=== PATIENT | female | born 1970 | race Caucasian/White ===

== ENCOUNTER → 2020-12-17 | Outpatient (CLI) | payer OTHER ==
[2020-12-17 09:57] LABS: BASO # 0.1 x10^3/uL (0.0-0.2); BASO % 1 % (0-3); EOS # 0.1 x10^3/uL (0.0-0.7); EOS % 2 % (0-3); HEMATOCRIT 38.3 % (36.0-47.0); HEMOGLOBIN 12.7 g/dL (12.0-15.5); LYMPH # 1.4 x10^3/uL (1.0-4.8); LYMPH % 23 % (24-48); MEAN CORPUSCULAR HEMOGLOBIN 30 pg (25-35); MEAN CORPUSCULAR HGB CONC 33 g/dL (31-37); MEAN CORPUSCULAR VOLUME 89 fL (79-100); MONO # 0.5 x10^3/uL (0.0-1.1); MONO % 8 % (0-9); NEUT # 4.1 x10^3/uL (1.8-7.7); NEUT % 67 % (31-73); PLATELET COUNT 326 x10^3/uL (140-400); RED BLOOD COUNT 4.29 x10^6/uL (3.50-5.40); RED CELL DISTRIBUTION WIDTH 14.6 % (11.5-14.5); WHITE BLOOD COUNT 6.1 x10^3/uL (4.0-11.0)
[2020-12-17 10:25] LABS: ALBUMIN 3.4 g/dL (3.4-5.0); ALBUMIN/GLOBULIN RATIO 0.9 (1.0-1.7); CALCIUM 9.5 mg/dL (8.5-10.1); GFR 58.7; POTASSIUM 4.3 mmol/L (3.5-5.1); TOTAL BILIRUBIN 0.2 mg/dL (0.2-1.0); TOTAL PROTEIN 7.2 g/dL (6.4-8.2)
[2020-12-17 10:26] LABS: CHOLESTEROL/HDL RATIO 2.6
[2020-12-17 10:29] LABS: FREE T4 1.12 ng/dL (0.76-1.46); THYROID STIM HORMONE (TSH) 5.89 uIU/mL (0.358-3.74)
[2020-12-18 01:09] LABS: HEMOGLOBIN A1C 5.6 % (4.8-5.6)
== END ==
LOC: LAB 09:30
PROVIDERS: ATTEND Family Medicine
DX: E78.5 Hyperlipidemia, unspecified (principal); I10 Essential (primary) hypertension; N95.1 Menopausal and female climacteric states; E55.9 Vitamin D deficiency, unspecified
CPT/HCPCS: 80053; 80061; 82306; 82672; 83036; 84439; 84443; 85025

== ENCOUNTER → 2020-12-22 | Outpatient (CLI) | payer OTHER ==
[~2020-12-22] MED LIST: CONTRAST GIVEN. MC PRN; IOHEXOL 240 MG/ML 50ML VIAL. PO ONE; IOHEXOL 300 MG/ML 100ML VIAL. IV ONE
--- NOTE | 2020-12-22 10:57 | RAD ---
EXAMINATION: CT abdomen and pelvis with IV contrast. INDICATION:50 years, Female, worsening and increasing size of hard and firm area in the right lower q uadrant, history of hernia repair. TECHNIQUE: Axial CT images of the abdomen and pelvis were obtained. Coronal and sagittal reformatted performed. COMPARISON: None. Exposure: One or more of the following individualized dose reduction techniques were utilized for thi s examination: 1. Automated exposure control 2. Adjustment of the mA and/or kV according to patient size 3. Use of iterative reconstruction technique. FINDINGS: LOWER CHEST: Unremarkable ABDOMEN/PELVIS: Normal size and morphology of the liver with homogeneous enhancement. No suspicious focal hepatic les ion. Cholecystectomy. No biliary ductal dilation. Unremarkable spleen, pancreas and adrenals. No hydr onephrosis or nephrolithiasis kidney. No bowel obstruction or wall thickening. Sigmoid diverticulosis. Normal appendix. No lymphadenopathy in the abdomen or pelvis by size criteria. Normal caliber abdominal aorta. Mesenteric arteries and po rtal vein are patent. No pneumoperitoneum or ascites. Unremarkable urinary bladder. Ill-defined heter ogeneous 7.1 cm mass in the anterior uterine body displacing the anterior and posterior, suggesting o f intramural fibroid. MUSCULOSKELETAL: Mild multilevel degenerative changes in the lower lumbar spine. Grade 1 anterolisthesis of L4 over L5 . No acute osseous process. Postsurgical changes of right infraumbilical ventral herniorrhaphy with m esh. There is a fat-containing right infraumbilical ventral hernia, hernia neck measures approximatel y 1.0 cm. Hernia sac measures 4.3 x 4.5 cm. Additional, small fat-containing umbilical hernia. IMPRESSION: 1. Postsurgical changes of right infraumbilical ventral hernia repair with recurrent small size fat-c ontaining hernia measures 4.5 cm with neck measures 1.0 cm. 2. Ill-defined heterogeneous 7.1 cm mass in the anterior uterine body, suggesting of an intramural fi broid. Recommend further evaluation with pelvic ultrasound. Electronically signed by: Wes Álvarez MD (12/22/2020 10:54 AM) [id number]
--- NOTE | 2020-12-23 15:38 | RAD ---
DATE: 12/22/2020 EXAM: MAMMO CAPO SCREENING BILATERAL HISTORY: Screening. Baseline exam. Family history of 2 paternal aunts with breast cancer in their 60s. COMPARISON: None. Baseline exam. This study was interpreted with the benefit of Computerized Aided Detection (CAD). Breast Density: SCATTERED The breast parenchyma shows scattered fibroglandular densities. Breast parenchyma level B. FINDINGS: No mass, suspicious calcification, or architectural distortion in either breast. IMPRESSION: No evidence of malignancy. BI-RADS CATEGORY: 1 NEGATIVE RECOMMENDED FOLLOW-UP: 12M 12 MONTH FOLLOW-UP PQRS compliance statement: Patient information was entered into a reminder system with a target due date for the next mammogram. Mammography is a sensitive method for finding small breast cancers, but it does not detect them all and is not a substitute for careful clinical examination. A negative mammogram does not negate a clinically suspicious finding and should not result in delay in biopsying a clinically suspicious abnormality. "Our facility is accredited by the [employer] Mammography Program."
== END ==
LOC: CT 08:44
PROVIDERS: ATTEND Family Medicine
DX: Z12.31 Encounter for screening mammogram for malignant neoplasm of breast (principal); K57.30 Diverticulosis of large intestine without perforation or abscess without bleeding; K43.9 Ventral hernia without obstruction or gangrene; K46.9 Unspecified abdominal hernia without obstruction or gangrene; M47.816 Spondylosis without myelopathy or radiculopathy, lumbar region; M43.16 Spondylolisthesis, lumbar region; Z90.49 Acquired absence of other specified parts of digestive tract
CPT/HCPCS: 74177; 77063; 77067; Q9966; Q9967

== ENCOUNTER → 2021-01-07 | Outpatient (CLI) | payer OTHER ==
--- NOTE | 2021-01-07 17:38 | RAD ---
EXAM: ULTRASOUND PELVIS INDICATION: Reason: 7.1 CM UTERINE, MASS ON CT / Spl. Instructions: / History: . Last menstrual per iod was December 25, 2020. COMPARISON: CT study performed on December 22, 2020. TECHNIQUE: Transabdominal sonography was performed. FINDINGS: The uterus is anteverted in position. The longitudinal and AP and transverse dimensions of the uterus are 16.8 cm and 9.4 cm and 9.3 cm respectively. There is a large anterior upper uterine body mass me asuring 7.5 cm x 6.1 cm x 6.9 cm in size. Color Doppler flow is seen within it. The endometrium measu res up to 12 mm in thickness and is displaced posteriorly by the mass. This is consistent with a larg e myometrial and submucosal uterine fibroid. No free fluid is seen within the cul-de-sac. The right ovary measures 2.4 cm x 1.8 cm x 2.2 cm in siz e and contains a 1.5 cm cyst. Color Doppler flow is seen within the right ovary. The left ovary measu res 2.3 cm and 1.4 cm and 2.4 cm in size and contains a 1.2 cm cyst. Color Doppler flow is seen withi n the left ovary. No adnexal mass is seen. IMPRESSION: Large anterior upper uterine body myometrial and submucosal fibroid measuring up to 7.5 cm. Bilateral ovarian follicular cysts. Electronically signed by: Jad Olivo MD (01/07/2021 5:36 PM) [id number]
== END ==
LOC: US 14:20
PROVIDERS: ATTEND Nurse Practitioner Family
DX: D25.0 Submucous leiomyoma of uterus (principal); N83.02 Follicular cyst of left ovary; N83.01 Follicular cyst of right ovary
CPT/HCPCS: 76856

== ENCOUNTER → 2021-02-05 | Outpatient (CLI) | payer OTHER ==
[~2021-02-05] MED LIST changes: +BUPR150T8 PO; -CONTRAST GIVEN. MC PRN; +DEXT20TA2 PO; +FLUO20CA16 PO; -IOHEXOL 240 MG/ML 50ML VIAL. PO ONE; -IOHEXOL 300 MG/ML 100ML VIAL. IV ONE; +LISI1TAB39 PO
== END ==
LOC: SPEC 14:46
PROVIDERS: ATTEND Obstetrics & Gynecology
DX: Z12.4 Encounter for screening for malignant neoplasm of cervix (principal)
CPT/HCPCS: 88175; 88305

== ENCOUNTER → 2021-03-18 | Outpatient (CLI) | payer OTHER ==
[2021-03-18 14:51] LABS: BILIRUBIN,URINE NEGATIVE (NEG); CLARITY,URINE CLEAR; COLOR,URINE YELLOW; NITRITE,URINE NEGATIVE (NEG); PH,URINE 6.5 (<5.0-8.0); PROTEIN,URINE NEGATIVE (NEG-TRACE); UROBILINOGEN,URINE 0.2 mg/dL (0.2 mg/dL)
[2021-03-18 14:55] LABS: BASO # 0.1 x10^3/uL (0.0-0.2); BASO % 1 % (0-3); EOS # 0.2 x10^3/uL (0.0-0.7); EOS % 3 % (0-3); HEMATOCRIT 40.2 % (36.0-47.0); HEMOGLOBIN 13.3 g/dL (12.0-15.5); LYMPH % 28 % (24-48); MEAN CORPUSCULAR HEMOGLOBIN 29 pg (25-35); MEAN CORPUSCULAR HGB CONC 33 g/dL (31-37); MEAN CORPUSCULAR VOLUME 88 fL (79-100); MONO # 0.5 x10^3/uL (0.0-1.1); MONO % 7 % (0-9); NEUT # 4.3 x10^3/uL (1.8-7.7); NEUT % 61 % (31-73); PLATELET COUNT 339 x10^3/uL (140-400); RED BLOOD COUNT 4.59 x10^6/uL (3.50-5.40); RED CELL DISTRIBUTION WIDTH 14.8 % (11.5-14.5)
[2021-03-18 15:04] LABS: BACTERIA,URINE FEW /HPF (0-FEW); WBC,URINE OCC /HPF (0-4)
[2021-03-18 15:05] LABS: RBC,URINE 0 /HPF (0-2)
[2021-03-18 15:09] LABS: ALBUMIN 3.3 g/dL (3.4-5.0); ALBUMIN/GLOBULIN RATIO 0.8 (1.0-1.7); CALCIUM 8.6 mg/dL (8.5-10.1); CREATININE 0.9 mg/dL (0.6-1.0); POTASSIUM 4.3 mmol/L (3.5-5.1); TOTAL BILIRUBIN 0.2 mg/dL (0.2-1.0); TOTAL PROTEIN 7.2 g/dL (6.4-8.2)
--- NOTE | 2021-03-18 15:16 | EKG ---
[facility] [address] [place] [address] Test Date: 2021-03-18 Test Time: 15:05:38 Pat Name: ELIJAH MARTÍNEZ Department: Room: Gender: F [employer]: JJ : 1970 Requested By: ANANTH LEMOS Order Number: [id number] Reading MD: Broderick Cole MD Measurements Intervals [place] Rate: 87 P: 35 IL: 136 QRS: -12 QRSD: 80 T: 50 QT: 372 QTc: 454 Interpretive Statements SINUS RHYTHM Electronically Signed On 03-21-2021 20:17:00 AUDIT CONTROL CLERK by Broderick Cole MD
--- NOTE | 2021-03-18 15:57 | RAD ---
AP and Lateral Views of the Chest 03/18/2021 3:21 PM Indication: Reason: PRE-OP HYSTERECTOMY ON 03/31 Comparison: None Findings: There is no focal consolidation or infiltrate identified. The cardiomediastinal silhouette is within normal limits. There is no evidence of pneumothorax or pleural effusion. No acute osseous a bnormalities are identified. Impression: No evidence of acute cardiopulmonary process. Electronically signed by: Hadley Faria MD (03/18/2021 3:55 PM) [id number]
== END ==
LOC: SURGPAT 14:28
PROVIDERS: ATTEND Obstetrics & Gynecology
DX: Z01.818 Encounter for other preprocedural examination (principal); I10 Essential (primary) hypertension; Z88.5 Allergy status to narcotic agent
CPT/HCPCS: 36415; 71046; 80053; 81001; 85025; 93005

== ENCOUNTER 2021-03-31 06:03 | Inpatient (IN) | payer OTHER ==
[2021-03-18 14:51] VITALS: BP 158/74
[~2021-03-31] VITALS: Ht 160 cm; Wt 100.2 kg
[2021-03-31] VITALS (10 sets, daily range): BP systolic 96–138; BP diastolic 52–75
[~2021-03-31 06:03] MED LIST changes: +HYDROmorphone 2 MG/ML VIAL IVP PRN; +IV RINGERS,LACTATED 1000ML 1,000 ML IV SCH; +PROCHLORPERAZINE 10 MG/2 ML VIAL. IVP PRN; +fentaNYL PF VIAL 100 MCG/2 ML VIAL IVP PRN
[2021-03-31] MEDS ORDERED: SCOPOLAMINE 1.5MG PATCH. TD ONE ×2 (06:08→07:00)
[2021-03-31] MEDS ORDERED: ceFAZolin 2GM PREMIX 2 GM/50 ML BAG IV ONE (06:10)
[2021-03-31] MEDS ORDERED: ROCURONIUM 50 MG/5 ML VIAL. ONE ×3 (06:48→08:38)
[2021-03-31] MEDS ORDERED: PROPOFOL 10 MG/ML (20ML) VIAL. IV ONE (06:48)
[2021-03-31] MEDS ORDERED: ONDANSETRON PF 4 MG/2 ML VIAL. ONE (06:49)
[2021-03-31] MEDS ORDERED: DEXAMETHASONE SOD PHOS 4 MG/ML VIAL ONE (06:49)
[2021-03-31] MEDS ORDERED: GLYCOPYRROLATE 1 MG/5 ML VIAL. ONE (06:53)
[2021-03-31] MEDS ORDERED: NEOSTIGMINE 10 MG/10 ML VIAL. ONE ×2 (06:53→08:51)
[2021-03-31] MEDS ORDERED: fentaNYL PF VIAL 100 MCG/2 ML VIAL ONE ×2 (06:54→11:16)
[2021-03-31] MEDS ORDERED: BUPIVACAINE-EPI 0.5% 30 ML VIAL KIT. ONE (07:11)
[2021-03-31] MEDS ORDERED: ePHEDrine PF IN SALINE 50 MG/10 ML SYRINGE. IV ONE (07:59)
[2021-03-31] MEDS ORDERED: HYDROmorphone 2 MG/ML VIAL ONE (08:19)
[2021-03-31] MEDS ORDERED: SUGAMMADEX SODIUM 200 MG/2 ML VIAL. IVP ONE (08:45)
[2021-03-31] MEDS ORDERED: VECURONIUM BOLUS 10 MG VIAL. IV ONE (09:44)
[2021-03-31] MEDS ORDERED: PHENYLEPHRINE in 0.9% NACL PF 1 MG/10 ML SYRINGE. IV ONE (10:18)
[2021-03-31] MEDS ORDERED: KETOROLAC 30 MG/ML VIAL. ONE (10:35)
[2021-03-31] MEDS ORDERED: SEVOFLURANE > 120 MINUTES. IH ONE (10:38)
[2021-03-31] MEDS ORDERED: CALCIUM CARBONATE 500 MG TAB.CHEW PO PRN (11:00)
[2021-03-31] MEDS ORDERED: ONDANSETRON PF 4 MG/2 ML VIAL. IV PRN (11:00)
[2021-03-31] MEDS ORDERED: ZOLPIDEM 5 MG TABLET. PO PRN (11:00)
[2021-03-31] MEDS ORDERED: MORPHINE SULFATE 2 MG/ML INJ. IV PRN (11:00)
[2021-03-31] MEDS ORDERED: MAGNESIUM HYDROXIDE 2,400 MG/30 ML ORAL.SUSP. PO PRN (11:00)
[2021-03-31] MEDS ORDERED: HYDROcodone/APAP 5/325MG 1 TAB TABLET PO PRN (11:00)
[2021-03-31] MEDS ORDERED: 0.9 % SODIUM CHLORIDE 10 ML DISP.SYRIN. IV PRN (11:00)
[2021-03-31] MEDS ORDERED: SIMETHICONE 80 MG TAB.CHEW PO PRN (11:00)
[2021-03-31] MEDS ORDERED: LACTULOSE 20 GM/30 ML SOLUTION. PO PRN (11:00)
[2021-03-31] MEDS ORDERED: MAG HYDROX/ALUMINUM HYD/SIMETH 30 ML ORAL.SUSP PO PRN (11:00)
[2021-03-31] MEDS ORDERED: diphenhydrAMINE HCL 25 MG CAPSULE PO PRN (11:00)
[2021-03-31] MEDS ORDERED: diphenhydrAMINE 50 MG/ML VIAL IV PRN (11:00)
[2021-03-31] MEDS ORDERED: NALOXONE 0.4 MG/ML VIAL. IV PRN (11:00)
--- NOTE | 2021-03-31 11:12 | PDOC4 ---
BRIEF OPERATIVE NOTE Date: Mar 31, 2021 Pre-Op Diagnosis menorrhagia, enlarged uterus Post-Op Diagnosis same plus extensive adhesive disease Procedure Performed GARRY/BSO/extensive adhesionlysis Surgeon Dr. Fiorella Lemos Guard Entrance Registrar Jose Dubose Anesthesiologist Dr. Parsons Anesthesia Type: General Blood Loss 450cc IV Fluid 1500cc crystalloid; 500cc albumin Urine Output 120cc clear Specimens Obtained cervix, uterus, bilateral tubes and ovaries Findings enlarged uterus, extensive adhesions, normal bilateral tubes and ovaries Complications none Operative Note [id number] FIORELLA LEMOS MD Mar 31, 2021 11:12
[2021-03-31] MEDS ORDERED: PROCHLORPERAZINE 10 MG/2 ML VIAL. ONE (11:16)
[2021-03-31] MEDS: fentaNYL PF VIAL 100 MCG/2 ML VIAL IVP PRN ×2 (11:23→11:37)
[2021-03-31] MEDS ORDERED: MORPHINE SULFATE 2 MG/ML INJ. ONE (11:38)
[2021-03-31] MEDS: MORPHINE SULFATE 2 MG/ML INJ. IVP PRN ×2 (11:48→12:02)
[2021-03-31 12:02] LABS: HEMATOCRIT 33.6 % (36.0-47.0); HEMOGLOBIN 10.7 g/dL (12.0-15.5); RED BLOOD COUNT 3.81 x10^6/uL (3.50-5.40); RED CELL DISTRIBUTION WIDTH 14.9 % (11.5-14.5); WHITE BLOOD COUNT 14.4 x10^3/uL (4.0-11.0)
--- NOTE | 2021-03-31 12:02 | OP ---
DATE OF SURGERY: 03/31/2021 PREOPERATIVE DIAGNOSES: Menorrhagia, enlarged uterus. POSTOPERATIVE DIAGNOSES: Menorrhagia, enlarged uterus, extensive pelvic adhesive disease. PROCEDURE: Total abdominal hysterectomy, bilateral salpingo-oophorectomy and extensive adhesiolysis. SURGEON: Fiorella Gordon MD. HOTEL MAID: MAYCOL Dubose. ANESTHESIOLOGIST: Dr. Nevarez. ANESTHESIA: General. BLOOD LOSS: 450 mL. URINE OUTPUT: 120 mL clear via Silvestre catheter. IV FLUIDS: 1500 mL of crystalloid and 500 mL of albumin. SPECIMENS: Cervix, uterus, bilateral tubes and ovaries. FINDINGS: She had an enlarged uterus, extensive adhesions. The uterus was adhesed to the anterior abdominal wall. The round ligaments were adhesed to the fascia bilaterally. Posteriorly, the uterus was clear. The bladder was absolutely concrete up the uterus and adhesed as well. So the uterus to the anterior abdominal wall as well as above where we were at the umbilicus, there were still adhesions from her prior umbilical hernia. Those were left alone, but I did take down all the bladder adhesions of course and all the anterior abdominal wall adhesions of the uterus to the anterior abdominal wall and the round ligaments that were adhesed to the fascia bilaterally. Over an hour was spent doing extensive adhesions. COMPLICATIONS: None. DESCRIPTION OF PROCEDURE: This patient was taken to the operating room where general anesthesia was placed. The patient was placed in a dorsal supine position. A Silvestre catheter had been inserted under sterile technique. She was prepped and draped in the normal sterile fashion. Upon my arrival, a timeout was performed. Once everyone agreed on the patient, the site, the procedure, the antibiotics, the procedure was initiated. A Pfannenstiel skin incision was made with the scalpel over the existing scar. Bovie cautery was used in the subcuticular layer and taking it down to the fascia. The fascia was scored in the midline and extended sharply and bluntly bilaterally. Smith clamps x 2 were placed on the superior fascial edge and the fascia was dissected from the rectus muscles beneath sharply and bluntly, mostly sharply because it was adhesed especially in the midline very significantly. I was able to get it up on either side and kind of come in from the sides to the midline until we got in and very high into the umbilicus, there was still omental adhesions and possible bowel adhesions that part was left alone. Going lower, the uterus was seen adhesed to the anterior abdominal wall and fascia below. Then, the uterine fundus was grasped with a towel clamp and elevated and the left side actually came down easy. I was able to get a plane and start taking the adhesions of the fascia off the uterus on this side, tube and ovary came up, we could see the left cornu and then the bladder flap was started from this side as well using the [place], pickups, Metzenbaums and creating that plane and kind of coming at it, the right side was completely solidly adhesed not just the uterus with the round to the fascia, the bladder solidly adhesed up the uterus, so this side took quite a bit of time and patients taking it down a little bit of time and working on it. I was finally able, once the uterus was up and the left side was free, I was able to wedge the right side up as well. I went ahead and was able to identify the ureter very low in the pelvis on the left side, so I went ahead and got the left infundibulopelvic ligament, making a window going under the left tube and ovary. Using a Goldston to elevate it and placing a curved Pean for backbleeding on the left cornua of the uterus. These were clamped and these were doubly tied, the first one like a Brennen tree front and back and then interrupted suture. Once I was able to get the right side, the right tube and ovary were free as well. The ureter was coursing low, it could be felt and palpated very low in the pelvis and staying high on the infundibulopelvic ligament, right under the ovary. Again, a window was created and clamping with curved Michael clamps immediately under the ovary and then a curved Smith for backbleeding on the right cornua of the uterus. These again were doubly clamped and suture ligated x 2 with 0 Vicryl. Once this was done, the left side could be skeletonized. I was able to get the left round ligament cleared out and suture ligated it x 2 and transected it and I could clear it out and I could get that bladder flap down and the left side was clear. The right side was still adhesed, so as I took the bladder down from the left side over the midline, I was able to kind of come up from underneath of it and get up to the adhesion and kind of see where the bladder was, but it was in the bladder and I was able to get into a plane and start taking that bladder off the uterus on the high right side. Once I was able to do that, I was able to see where the fascia attached to the round ligament and get it down on the right side as well. Initially, I could not see where the bladder ended. The fascia began on the adhesions and I did not want to get into the bladder. So once the bladder was down, I was able to then finish the fascial adhesions to the right round ligament on the right side where it was adhesed to the anterior abdominal wall. Once this was down, I could pull the rest of the uterus out and start skeletonizing the right side as well and get the uterine vessels on both sides. Once the uterine vessels were obtained, almost all the bleeding was secured and then I put a little straight Smith for backbleeding, doubly clamped with curved Michael's, straight Smith for backbleeding, cut with curved Walker scissors and suture ligated x 2 with 0 Vicryl. This was done on both sides. Once this was done and I could take down the bladder, the remainder of the way under direct visualization and the posterior was clear. I was able to put straight Heaneys inside of each of those pedicles x 2, cut with the knife and suture ligated x 2 with 0 Vicryl, 2 or 3 straight Heaneys on both sides were taken through the cardinal and broad ligaments and then until we were down to the level of the uterosacrals, I used curved Heaneys again and tagged that corner pedicle. Then, on the left side, I went posteriorly and clamped curved Michael under the cervix, cut and was able to get in posteriorly. Ellis's were used to amputate the specimen. Once this was done, long Kochers were placed on the anterior and posterior vaginal cuff. The corners were obtained on both sides going from inside out across the uterosacral and back in on both sides and tagging them and then interrupted 3 or 4 sutures with 0 Vicryl, was taken across the cuff, closing it in an interrupted fashion and tagging them. I did transect the round, took suture, suture ligated x 2, used the cautery to cut between, then skeletonized the right side, then got the uterine vessels, then did the straight Heaneys inside the cardinal and broad ligaments down to the level of the uterosacral. So once the specimen was out, the cuff was closed, both corners were obtained, first from inside across the uterosacral, outside and in back in on both sides and then interrupted the cross. Copious irrigation revealed hemostasis. The appendix looked clear. The bowel was grossly normal. The cuff threads were trimmed. Once they were trimmed, Kelsey was placed over the cuff with excellent results. During some of the adhesiolysis, once the uterus was freed, used three moist laps and packed away the bowel. These were taken out and prior to closing the fascia here at the end, we had double count of the sponges to make sure all the laps were correct x 2 by OR personnel before closing. Once these were assured to be good, there was no active bleeding. Kelsey was placed on the vaginal cuff. Right and left pericolic gutters were clear. Appendix was grossly normal, bowel was grossly normal. We examined the muscle beds. The muscles were clear. It was decided to close the fascia with 0 Vicryl from left to past midline and then right to past that. The Fátima's subcuticular layer was irrigated again, it was dry as well. It was closed with 3-0 Vicryl and then the skin was closed with a 4-0 Monocryl in a subcuticular fashion. The skin was dressed with Mastisol and Steri-Strips and an ABD. The patient was awakened from anesthesia and is currently being brought to recovery room in stable condition. JUANY DR: Katie TID: [id number]
--- NOTE | 2021-03-31 16:10 | NUR ---
gave pt the fent 25 but did not hit save
[2021-03-31] MEDS: oxyCODONE/APAP 5/325 1 TAB TABLET PO PRN ×2 (18:15→20:00)
[2021-04-01] MEDS: oxyCODONE/APAP 5/325 1 TAB TABLET PO PRN ×4 (00:22→20:30)
[2021-04-01 00:25] VITALS: BP 111/57
[2021-04-01 06:12] VITALS: BP 118/67
[2021-04-01 07:45] LABS: CALCIUM 7.9 mg/dL (8.5-10.1); CREATININE 0.8 mg/dL (0.6-1.0); GFR 75.6; POTASSIUM 4.4 mmol/L (3.5-5.1)
[2021-04-01 07:54] VITALS: BP 128/68
--- NOTE | 2021-04-01 08:40 | PDOC ---
SURGICAL PROGRESS NOTE DATE: 04/01/21 TIME: 08:36 Subjective up in restroom and walking around room, minimal pain, scant vb, tolerating pO without n/v Vital Signs Vital Signs Date Time Temp Pulse Resp B/P (MAP) Pulse Ox O2 Delivery O2 Flow Rate FiO2 04/01/21 07:57 16 Room Air 04/01/21 07:54 98.6 83 128/68 (88) 98.6 04/01/21 06:12 98 03/31/21 20:01 8.0 I&O Intake and Output 04/01/21 07:00 Intake Total 2230 ml Output Total 1070 ml Balance 1160 ml Intake Oral 180 ml IV Total 2050 ml Output Urine Total 620 ml Estimated Blood Loss 450 ml PATIENT HAS A BALTAZAR: No (removed while I was in there, had still when I went in room) General: Alert, Oriented X3, Cooperative, No acute distress HEENT: Atraumatic Heart: Regular rate Abdomen: Soft, Other (bandage c/d/i appropriately TTP) Extremities: No clubbing, No cyanosis, No edema, No tenderness/swelling Skin: No rashes, No breakdown Neuro: Normal gait, Normal speech Psych/Mental Status: Mental status NL, Mood NL Labs Laboratory Tests Test 03/31/21 06:16 03/31/21 11:50 04/01/21 06:55 Bedside Urine HCG, Qualitative Hcg negative (Negative) White Blood Count 14.4 x10^3/uL (4.0-11.0) Red Blood Count 3.81 x10^6/uL (3.50-5.40) Hemoglobin 10.7 g/dL (12.0-15.5) Hematocrit 33.6 % (36.0-47.0) 29.2 % (36.0-47.0) Mean Corpuscular Volume 88 fL (79-100) Mean Corpuscular Hemoglobin 28 pg (25-35) Mean Corpuscular Hemoglobin Concent 32 g/dL (31-37) Red Cell Distribution Width 14.9 % (11.5-14.5) Platelet Count 322 x10^3/uL (140-400) Sodium Level 137 mmol/L (136-145) Potassium Level 4.4 mmol/L (3.5-5.1) Chloride Level 106 mmol/L (98-107) Carbon Dioxide Level 23 mmol/L (21-32) Anion Gap 8 (6-14) Blood Urea Nitrogen 13 mg/dL (7-20) Creatinine 0.8 mg/dL (0.6-1.0) Estimated GFR (Cockcroft-Gault) 75.6 Glucose Level 101 mg/dL (70-99) Calcium Level 7.9 mg/dL (8.5-10.1) Laboratory Tests Test 03/31/21 11:50 04/01/21 06:55 White Blood Count 14.4 x10^3/uL (4.0-11.0) Red Blood Count 3.81 x10^6/uL (3.50-5.40) Hemoglobin 10.7 g/dL (12.0-15.5) Hematocrit 33.6 % (36.0-47.0) 29.2 % (36.0-47.0) Mean Corpuscular Volume 88 fL (79-100) Mean Corpuscular Hemoglobin 28 pg (25-35) Mean Corpuscular Hemoglobin Concent 32 g/dL (31-37) Red Cell Distribution Width 14.9 % (11.5-14.5) Platelet Count 322 x10^3/uL (140-400) Sodium Level 137 mmol/L (136-145) Potassium Level 4.4 mmol/L (3.5-5.1) Chloride Level 106 mmol/L (98-107) Carbon Dioxide Level 23 mmol/L (21-32) Anion Gap 8 (6-14) Blood Urea Nitrogen 13 mg/dL (7-20) Creatinine 0.8 mg/dL (0.6-1.0) Estimated GFR (Cockcroft-Gault) 75.6 Glucose Level 101 mg/dL (70-99) Calcium Level 7.9 mg/dL (8.5-10.1) I have reviewed the following labs, vitals, nursing Assessment/Plan POD#1 s/p GARRY/BSO/extensive adhesiolysis Routine PO care ambulate at least tid to qid ADAT mild po anemia but stable continue to monitor, if all goes well today plan would be home tomorrow Justicifation of Admission Dx: Justifications for Admission: Justification of Admission Dx: Yes ANANTH LEMOS MD Apr 01, 2021 08:40
[2021-04-01] MEDS ORDERED: IBUPROFEN 400 MG TABLET. PO PRN (09:45)
[2021-04-01] MEDS ORDERED: DOCUSATE SODIUM 100 MG CAPSULE. PO PRN (09:45)
[2021-04-01 10:35] VITALS: BP 117/57
[2021-04-01 15:35] VITALS: BP 136/70
[2021-04-01 21:33] VITALS: BP 116/61
[2021-04-02 03:00] VITALS: BP 128/65
[2021-04-02] MEDS: oxyCODONE/APAP 5/325 1 TAB TABLET PO PRN (03:00)
[2021-04-02 08:30] VITALS: BP 136/78
--- NOTE | 2021-04-02 08:38 | PDOC ---
SURGICAL PROGRESS NOTE DATE: 04/02/21 TIME: 08:24 Subjective Doing well without complaints, ambulating well, voiding without catheter, +flatus, tolerating regular diet and PO pain meds Vital Signs Vital Signs Date Time Temp Pulse Resp B/P (MAP) Pulse Ox O2 Delivery O2 Flow Rate FiO2 04/02/21 08:14 18 Room Air 04/02/21 03:39 98 04/02/21 03:00 98.3 83 128/65 (86) 98.3 I&O Intake and Output 04/02/21 07:00 Intake Total 725 ml Balance 725 ml IV Total 725 ml # Voids 2 PATIENT HAS A BALTAZAR: No General: Alert, Oriented X3, Cooperative, No acute distress HEENT: Atraumatic Heart: Regular rate Abdomen: Soft, Other (incision c//d/i (bandage removed/dry with steri strips in place)) Extremities: No clubbing, No cyanosis, No edema, No tenderness/swelling Skin: No rashes, No breakdown Neuro: Normal speech Psych/Mental Status: Mental status NL, Mood NL Labs Laboratory Tests Test 03/31/21 11:50 04/01/21 06:55 White Blood Count 14.4 x10^3/uL (4.0-11.0) Red Blood Count 3.81 x10^6/uL (3.50-5.40) Hemoglobin 10.7 g/dL (12.0-15.5) Hematocrit 33.6 % (36.0-47.0) 29.2 % (36.0-47.0) Mean Corpuscular Volume 88 fL (79-100) Mean Corpuscular Hemoglobin 28 pg (25-35) Mean Corpuscular Hemoglobin Concent 32 g/dL (31-37) Red Cell Distribution Width 14.9 % (11.5-14.5) Platelet Count 322 x10^3/uL (140-400) Sodium Level 137 mmol/L (136-145) Potassium Level 4.4 mmol/L (3.5-5.1) Chloride Level 106 mmol/L (98-107) Carbon Dioxide Level 23 mmol/L (21-32) Anion Gap 8 (6-14) Blood Urea Nitrogen 13 mg/dL (7-20) Creatinine 0.8 mg/dL (0.6-1.0) Estimated GFR (Cockcroft-Gault) 75.6 Glucose Level 101 mg/dL (70-99) Calcium Level 7.9 mg/dL (8.5-10.1) I have reviewed the following labs, vitals, nursing Assessment/Plan POD#2 s/p GARRY/BSO/extensive adhesiolysis Routine PO care d/c to home later today NPV x 6 weeks light/limited activity x 2 weeks NO [address] x 1 week and while on narcotic pain meds has narcotic script at home already ok to alternate OTC ibuprofen as needed keep scheduled one week follow up with me in office call or return sooner for any other questions or concerns not limited to but including pain unrelieved with pain meds, increased or unexplained vb, T>100.4 Justicifation of Admission Dx: Justifications for Admission: Justification of Admission Dx: Yes ANANTH LEMOS MD Apr 02, 2021 08:38
--- NOTE | 2021-04-02 08:40 | PDOC3 ---
Discharge Summary Visit Information Date of Admission: Mar 31, 2021 Date of Discharge: Apr 02, 2021 Final Diagnosis enlarged fibroid uterus, menorrhagia, extensive adhesions Brief Hospital Course Allergies Allergies Coded Allergies Type Severity Reaction Last Updated Verified No Known Drug Allergies 03/31/21 No Vital Signs Vital Signs Date Time Temp Pulse Resp B/P (MAP) Pulse Ox O2 Delivery O2 Flow Rate FiO2 04/02/21 08:14 18 Room Air 04/02/21 03:39 98 04/02/21 03:00 98.3 83 128/65 (86) 98.3 Lab Results Laboratory Tests Test 03/31/21 11:50 04/01/21 06:55 White Blood Count 14.4 x10^3/uL (4.0-11.0) Red Blood Count 3.81 x10^6/uL (3.50-5.40) Hemoglobin 10.7 g/dL (12.0-15.5) Hematocrit 33.6 % (36.0-47.0) 29.2 % (36.0-47.0) Mean Corpuscular Volume 88 fL (79-100) Mean Corpuscular Hemoglobin 28 pg (25-35) Mean Corpuscular Hemoglobin Concent 32 g/dL (31-37) Red Cell Distribution Width 14.9 % (11.5-14.5) Platelet Count 322 x10^3/uL (140-400) Sodium Level 137 mmol/L (136-145) Potassium Level 4.4 mmol/L (3.5-5.1) Chloride Level 106 mmol/L (98-107) Carbon Dioxide Level 23 mmol/L (21-32) Anion Gap 8 (6-14) Blood Urea Nitrogen 13 mg/dL (7-20) Creatinine 0.8 mg/dL (0.6-1.0) Estimated GFR (Cockcroft-Gault) 75.6 Glucose Level 101 mg/dL (70-99) Calcium Level 7.9 mg/dL (8.5-10.1) Brief Hospital Course Ms. Garrett is a 51 old female who presented with an enlarged fibroid uterus with menorrhagia. She underwent a GARRY/BSO and was found to have extensive adhesive disease. She has had an unremarkable postoperative course. She is voiding without catheter, ambulating well, tolerating pO pain meds and food without difficulty. +flatus, scant VB Assessment Assessment POD#2 s/p GARRY/BSO/extensive adhesiolysis Routine PO care d/c to home later today NPV x 6 weeks light/limited activity x 2 weeks NO driving x 1 week and while on narcotic pain meds has narcotic script at home already ok to alternate OTC ibuprofen as needed keep scheduled one week follow up with me in office call or return sooner for any other questions or concerns not limited to but including pain unrelieved with pain meds, increased or unexplained vb, T>100.4 Discharge Information Condition at Discharge: Stable Follow Up: Weeks Disposition/Orders: D/C to Home Scheduled Bupropion Hcl (Wellbutrin Sr) 150 Mg Tablet.er, 150 MG PO HS for depression, (Reported) Entered as Reported by: JUDIE SAINI on 03/18/21 1447 Dextroamphetamine/Amphetamine (Adderall 20 Mg Tablet) 20 Mg Tablet, 1 TAB PO TID for adhd MDD 3 Tablet(s) for 30 Days, #90 Ref 0 (Reported) Entered as Reported by: JUDIE SAINI on 03/18/21 1447 Fluoxetine Hcl (Prozac) 20 Mg Capsule, 60 MG PO HS for depression, (Reported) Entered as Reported by: JUDIE SAINI on 03/18/21 1446 Lisinopril/Hydrochlorothiazide (Lisinopril-Hctz 20-25 Mg Tab) 1 Each Tablet, 1 TAB PO HS for htn, #30 Ref 5 (Reported) Entered as Reported by: JUDIE SAINI on 03/18/21 1449 Patient Instructions Patient Instructions POD#2 s/p GARRY/BSO/extensive adhesiolysis Routine PO care d/c to home later today NPV x 6 weeks light/limited activity x 2 weeks NO driving x 1 week and while on narcotic pain meds has narcotic script at home already ok to alternate OTC ibuprofen as needed keep scheduled one week follow up with me in office call or return sooner for any other questions or concerns not limited to but including pain unrelieved with pain meds, increased or unexplained vb, T>100.4 Justicifation of Admission Dx: Justifications for Admission: Justification of Admission Dx: Yes ANANTH LEMOS MD Apr 02, 2021 08:40
--- NOTE | 2021-04-02 17:09 | PATHOLOGY ---
[facility] Accession Number: [id number] . 01 Material submitted: . uterus - UTERUS, CERVIX, BILATERAL TUBES AND OVARIES . 01 Clinical history: . FIBROIDS, MENORRHAGIA, GARRY, BS/O . 02 Diagnosis: Uterus, bilateral fallopian tubes and ovaries, total abdominal hysterectomy with bilateral salpingo-oophorectomy: - Leiomyomas, uterine corpus, intramural and subserosal, multiple, the largest measuring 6.6 cm in greatest dimension (uterine weight 571 grams). - Chronic inflammation of exocervix with edema of exocervical epithelium. - Chronic cervicitis with squamous metaplasia. - Nabothian cyst, cervix. - Uterine serosal adhesions, focal. - Early secretory endometrium. - Small paratubal cysts, right and left fallopian tubes. - Few cystic follicles of bilateral ovaries. - Hemorrhagic corpus luteum cyst, right ovary. LBQ 04/02/2021 1621 Local . 02 Comment: There is no evidence of malignancy. (JPM/db; 04/02/2021) . 02 Electronically signed: . Saulo Chowdhury MD, Pathologist NPI- [id number] . 01 Gross description: . Fixative: Formalin Labeled: Uterus, cervix, bilateral tubes and ovaries Specimen received: Uterus with attached cervix, attached left ovary, attached right adnexa, detached left fallopian tube Uterus weight: 571 g Uterus: 14.9 cm cervix to fundus, 9.8 cm cornu to cornu, and 10.9 cm anterior to posterior Serosa: [place]-mejía to pink-aguiar, smooth with a moderate amount of overlying adhesions Ectocervix: Pale mejía, smooth Cervical os: Pinpoint, measuring 0.2 cm Endocervical canal: 3.8 cm Endometrial cavity: 7.3 x 2.9 cm Endometrium: Pale mejía to pink-mejía, glistening Endometrial thickness: Up to 0.2 cm Myometrium: Mejía-pink, trabeculated Myometrium thickness: Up to 7.2 cm Lesions/abnormalities: Multiple subserosal and intramural fibroids ranging in size from 1.1-6.6 cm Left fallopian tube: 1 g, fimbriated; 3.5 cm in length, 0.3-0.4 cm in diameter Left fallopian tube cut surface: Pinpoint lumen Left ovary: 5 g, 2.9 x 2.1 x 1.8 cm Left ovary cut surface: A single cystic structure measuring 1.0 cm filled with clear fluid, as well as pale mejía, normal ovarian stroma Right fallopian tube: 2 g, fimbriated; 2.7 cm in length, 0.4-0.5 cm in diameter, Right fallopian tube cut surface: Pinpoint to patent lumen Right ovary: 9 g, 4.5 x 2.2 x 1.4 cm Right ovary cut surface: Multiple cystic structures ranging in size from 0.3-0.4 cm, as well as pale mejía, normal ovarian stroma . 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 [facility] 04/01/2021 1239 Local . 02 Pathologist provided ICD-10: D25.1, D25.2, N72, N87.9, N88.8, N83.8, N83.11 . 02 CPT . 661530 Specimen Comment: A courtesy copy of this report has been sent to [phone], [phone] Specimen Comment: [id number] Specimen Comment: Report sent to / DR CHAMPAGNE Specimen Comment: A duplicate report has been generated due to demographic updates. Performed at: [address], [place] [id number] MD Jann Hodges MD Phone: [phone] Performed at: 02 [facility] [address] [place], [place] [id number] MD Saulo Chowdhury MD Phone: [phone]
== END 2021-04-02 09:55 | disposition home or self-care (01) | DRG 743 ==
LOC: OPSVCIP 06:03 → 3 NORTH 12:20
PROVIDERS: ADMIT Obstetrics & Gynecology; ATTEND Obstetrics & Gynecology
PROC: 0UT70ZZ Resection of Bilateral Fallopian Tubes, Open Approach (ICD-10-PCS; 2021-03-31)
PROC: 0UT20ZZ Resection of Bilateral Ovaries, Open Approach (ICD-10-PCS; 2021-03-31)
PROC: 0DNW0ZZ Release Peritoneum, Open Approach (ICD-10-PCS; 2021-03-31)
PROC: 0TNB0ZZ Release Bladder, Open Approach (ICD-10-PCS; 2021-03-31)
PROC: 0UT90ZZ Resection of Uterus, Open Approach (ICD-10-PCS; principal; 2021-03-31 07:30)
DX: D25.9 Leiomyoma of uterus, unspecified (principal); D64.9 Anemia, unspecified; N73.6 Female pelvic peritoneal adhesions (postinfective); N92.0 Excessive and frequent menstruation with regular cycle
CPT/HCPCS: 36415; 80048; 81025; 85014; 85027; 86850; 86900; 86901; A4314; A4364; A4452; A4930; A6253; A6255; A6402; J0690; J0780; J1100; J1170; J1885; J2270; J2370; J2405; J2704; J2710; J3010; J3480; J3490; J7120; G0378

== ENCOUNTER → 2021-05-17 | Outpatient (CLI) | payer OTHER ==
[~2021-05-17] MED LIST changes: -HYDROmorphone 2 MG/ML VIAL IVP PRN; -IV RINGERS,LACTATED 1000ML 1,000 ML IV SCH; -PROCHLORPERAZINE 10 MG/2 ML VIAL. IVP PRN; -fentaNYL PF VIAL 100 MCG/2 ML VIAL IVP PRN
[2021-05-18 02:14] LABS: ESTRADIOL LEVEL <5.0 pg/mL (.); PROGESTERONE <0.1 ng/mL (.)
== END ==
LOC: LAB 13:53
PROVIDERS: ATTEND Obstetrics & Gynecology
DX: N95.1 Menopausal and female climacteric states (principal)
CPT/HCPCS: 82670; 84144; 84402; 84403